=== PATIENT | male | born 1975 | race Caucasian/White ===

== ENCOUNTER → 2016-07-19 | Outpatient (CLI) | payer OTHER | LOC: LAB 09:24 | DX: R03.0 Elevated blood-pressure reading, without diagnosis of hypertension (principal); R07.9 Chest pain, unspecified; R55 Syncope and collapse | CPT/HCPCS: 36415; 84443 ==

== ENCOUNTER → 2016-07-25 | Outpatient (CLI) | payer OTHER | LOC: HEART 5 08:00 | DX: R55 Syncope and collapse (principal); R07.9 Chest pain, unspecified; R06.00 Dyspnea, unspecified; I05.9 Rheumatic mitral valve disease, unspecified; I35.1 Nonrheumatic aortic (valve) insufficiency | CPT/HCPCS: 93306 ==

== ENCOUNTER 2020-07-30 18:12 | Emergency (ER) | payer OTHER ==
[2020-07-30] MEDS ORDERED: LODINE CAP 300300 MG PO (20:06)
[2020-07-30] MEDS ORDERED: NORFLEX 100 MG100 MG PO (20:06)
== END 2020-07-30 20:17 | disposition home or self-care (01) ==
LOC: ER1 18:12
DX: S13.4XXA Sprain of ligaments of cervical spine, initial encounter (principal); Z88.0 Allergy status to penicillin; V49.40XA Driver injured in collision with unspecified motor vehicles in traffic accident, initial encounter
CPT/HCPCS: 72125; 99283

== ENCOUNTER 2020-12-29 16:16 | Emergency (ER) | payer BC ==
[~2020-12-29] VITALS: Ht 177.8 cm; Wt 113.4 kg
[~2020-12-29 16:16] MED LIST: LODINE CAP 300300 MG PO; NORFLEX 100 MG100 MG PO
[2020-12-29 19:33] LABS: HEMOGLOBIN 15.9 gm/dl (14.0-17.5); RED BLOOD COUNT 4.86 M/UL (4.20-5.50); WHITE BLOOD COUNT 8.7 K/UL (4.5-11.0)
[2020-12-29 19:59] LABS: BUN/CREATININE RATIO 16 (0-10)
== END 2020-12-30 20:35 | disposition home or self-care (01) ==
LOC: ER1 16:16 → CDU 12-30 02:11 → ER1 12-30 20:35
PROVIDERS: Physician Assistant
DX: R07.9 Chest pain, unspecified (principal); R00.2 Palpitations; R42 Dizziness and giddiness; R74.8 Abnormal levels of other serum enzymes; Z20.822 Contact with and (suspected) exposure to COVID-19; Z90.89 Acquired absence of other organs; Z88.0 Allergy status to penicillin
CPT/HCPCS: 71045; 78452; 80053; 80061; 82550; 82553; 83874; 84439; 84443; 84484; 85025; 85379; 85730; 93005; 96374; 96375; 96376; 99285; A9502; J1644; U0002